=== PATIENT | female | born 1980 | race Caucasian/White ===

== ENCOUNTER 2016-05-11 05:45 | Outpatient (CLI) | payer OTHER ==
[~2016-05-11 05:45] MED LIST: ACET-1256 PO; OXYC5TAB PO; PRENTAB26 PO; SENNTAB23 PO
[2016-05-11] MEDS ORDERED: LACTATED RINGER'S 1000ML 500 ML IV ONE (06:08)
[2016-05-11] MEDS ORDERED: LACTATED RINGER'S 1000ML 1,000 ML IV SCH (06:08)
[2016-05-11 06:58] LABS: URINE APPEARANCE CLEAR (CLEAR); URINE BILIRUBIN NEG (NEG); URINE COLOR YELLOW; URINE EPITHELIAL CELL AUTO 20-30 /lpf (0-5); URINE NITRITE NEG (NEG); URINE SPECIFIC GRAVITY 1.012 (1.000-1.030); UROBILINOGEN NEG (NEG)
[2016-05-11 07:02] LABS: MANUAL MICROSCOPIC REQUIRED? NO; REVIEW REQ? NO
[2016-05-11] MEDS ORDERED: CEPH500C2 PO (08:41)
[2016-05-11] MEDS ORDERED: [UNRECOGNIZED DRUG - CODE] PV (08:58)
== END 2016-05-11 09:05 | disposition home or self-care (01) ==
LOC: C.OPB 05:45 → C.LD 05:48 → C.OPB 09:05
PROVIDERS: ATTEND Obstetrics & Gynecology
DX: O62.9 Abnormality of forces of labor, unspecified (principal); Z3A.34 34 weeks gestation of pregnancy

== ENCOUNTER 2016-06-03 10:57 | Outpatient (CLI) | payer OTHER ==
[~2016-06-03 10:57] MED LIST changes: +[UNRECOGNIZED DRUG - CODE] PV
== END 2016-06-03 11:44 | disposition home or self-care (01) ==
LOC: C.OPB 10:57 → C.LD 10:57 → C.OPB 11:44
PROVIDERS: ATTEND Obstetrics & Gynecology
DX: Z34.03 Encounter for supervision of normal first pregnancy, third trimester (principal); Z3A.37 37 weeks gestation of pregnancy

== ENCOUNTER 2016-06-16 14:10 | Outpatient (CLI) | payer OTHER ==
[~2016-06-16] VITALS: Ht 167.6 cm; Wt 91.0 kg
[2016-06-16 14:47] VITALS: Ht 167.6 cm; Wt 91.0 kg
== END 2016-06-16 15:30 | disposition home or self-care (01) ==
LOC: C.LD 14:10 → C.OPB 14:10
PROVIDERS: ATTEND Obstetrics & Gynecology
DX: Z34.03 Encounter for supervision of normal first pregnancy, third trimester (principal); Z3A.39 39 weeks gestation of pregnancy

== ENCOUNTER 2016-06-24 19:03 | Emergency (ER) | payer OTHER ==
[~2016-06-24] VITALS: Ht 167.6 cm; Wt 85.0 kg
[2016-06-24 19:06] VITALS: TEMP 36.5
[2016-06-24] MEDS ORDERED: SODIUM CHLORIDE 0.9% 1000ML 1,000 ML IV STA (19:32)
[2016-06-24] MEDS ORDERED: ONDANSETRON INJ 2 MG/ML 2 ML VIAL IV STA (19:32)
[2016-06-24] MEDS ORDERED: IBUP-1050 PO (19:47)
[2016-06-24] MEDS ORDERED: OXYC-57 PO (19:47)
[2016-06-24 20:10] VITALS: Ht 167.6 cm; Wt 85.0 kg
[2016-06-24 20:26] LABS: BASO % 0.2 %; BASO ABS # 0.02 K/uL (0-0.2); EOS % 1.3 %; HEMATOCRIT 26.3 % (37-47); IG% 0.9 %; LYMPH ABS # 2.97 K/uL (1.2-3.4); MEAN CELL VOLUME 85.1 fL (80-100); MEAN CORPUSCULAR HEMOGLOBIN 28.8 pg (25-34); MEAN CORPUSCULAR HGB CONC 33.8 g/dl (32-36); MONO % 4.5 %; NEUT % 67.1 %; PLATELET COUNT 316 K/uL (130-400); RED BLOOD COUNT 3.09 M/uL (4.2-5.4); WHITE BLOOD COUNT 11.43 K/uL (4.8-10.8)
[2016-06-24 20:35] LABS: URINE APPEARANCE CLOUDY (CLEAR); URINE BILIRUBIN NEG (NEG); URINE EPITHELIAL CELL AUTO >30 /lpf (0-5); URINE NITRITE NEG (NEG); URINE PH 6.5 (4.5-7.5); URINE SPECIFIC GRAVITY 1.011 (1.000-1.030); UROBILINOGEN NEG (NEG)
[2016-06-24 20:38] LABS: PARTIAL THROMBOPLASTIN RATIO 1.1; PROTHROMBIN TIME (PATIENT) 10.5 SECONDS (9.0-12.0)
[2016-06-24 20:46] LABS: CALCIUM 8.8 mg/dl (8.5-10.1); CREATININE 0.61 mg/dl (0.60-1.20); POTASSIUM 3.8 mmol/L (3.5-5.1)
[2016-06-24 20:48] LABS: MANUAL MICROSCOPIC REQUIRED? NO; REVIEW REQ? YES; URINE COLOR RED
[2016-06-24 20:49] LABS: ALB/GLOB RATIO 0.6 (0.9-2)
--- NOTE | 2016-06-24 21:10 | EMERGENCY ROOM VISIT NOTE ---
History Report prepared by Farhan: Candice Pabon Under the Supervision of: Dr. Ajay Albrecht D.O. First contact with patient: 19:14 Chief Complaint: ED VAG BLEEDING Stated Complaint: VAG BLEED History of Present Illness The patient is a 35 year old female who presents to the Emergency Room with complaints of worsening vaginal bleeding starting earlier today WELLNESS DIRECTOR. The patient states that she had a caesarean section 6 days WELLNESS DIRECTOR. The patient states that she has a fibroid tumor in her uterus and she was considered high risk which is why she had the caesarean section at [facility]. The patient states that she was told that if she had any bleeding with bright red blood with clotting to come and be evaluated. The patient states that after going home from [facility] 3 days ago she did have a lot of bright red bleeding but her doctor told her it was probably just from the car ride and that it was of no concern. The patient states that today she sat up to grab her breast pump and a large crane of vaginal bright red blood with a large clot occurred. She states that there was enough blood that it would have soaked through a normal menstrual pad. The patient states she has also had discharge from her surgical incision but has not noticed any unusual odor from the discharge which is what she was told to be worried about. The patient states she is also having vaginal pain. The patient states she has no other medical issues. Source of History: patient Onset: earlier today WELLNESS DIRECTOR Position: other (vaginal) Quality: other (bright red with clotting) Timing: worsening Note: Associated symptoms: vaginal pain, discharge from incision sight. Review of Systems See HPI for pertinent positives & negatives. A total of 10 systems reviewed and were otherwise negative. Past Medical & Surgical Medical Problems: (1) 39 weeks gestation of (2) Amniotic fluid leaking (3) with 37 weeks completed gestation (4) Uterine contractions (5) Uterine fibroid complicating care, baby not yet delivered in third trimester Surgical Problems: (1) S/P adenoidectomy Family History Cancer Gallbladder disease Heart disease Social History Smoking Status: Never Smoker Alcohol Use: none Marital Status: Housing Status: lives with significant other Occupation Status: employed Current/Historical Medications Scheduled Ibuprofen (Advil), 200-600 MG PO Q6 Scheduled PRN Oxycodone/Acetaminophen 5MG/325MG (Percocet 5MG/325MG), 1 TABLET PO Q6H PRN for Pain Allergies Coded Allergies: No Known Allergies (Unverified , 06/24/16) Physical Exam Vital Signs Date Time Temp Pulse Resp B/P Pulse Ox O2 Delivery O2 Flow Rate FiO2 06/24/16 22:19 60 107/62 97 06/24/16 22:10 60 20 107/62 97 Room Air 06/24/16 19:36 Room Air 06/24/16 19:29 68 06/24/16 19:06 36.5 64 17 109/74 97 Room Air Physical Exam GENERAL: Patient is awake, alert, and in no acute distress. Patient is resting comfortably and showing no signs of anxiety EYES: The conjunctivae are clear. The pupils are round and reactive. EARS, NOSE, MOUTH AND THROAT: The nose is without any evidence of any deformity. Mucous membranes are moist tongue is midline NECK: The neck is nontender and supple. RESPIRATORY: Normal respiratory effort is noted there is no evidence of wheezing rhonchi or rales CARDIOVASCULAR: Regular rate and rhythm noted there no murmurs rubs or gallops normal S1 normal S2 GASTROINTESTINAL: The abdomen mildly distended and diffusely tender. Vertical midline lower abdomen incision noted. Mild erythema noted, no dehiscence. Small amount of clear drainage noted in the superior aspect of the healing surgical sight. MUSCULOSKELETAL/EXTREMITIES: There is no evidence of gross deformity full range of motion is noted in the hips and shoulders SKIN: There is no obvious evidence of any rash. There are no petechiae, pallor or cyanosis noted. Bilateral pedal edema. NEUROLOGIC: Patient is awake alert and oriented x3 strength is symmetric patellar reflexes are 2+ bilaterally Medical Decision & Procedures ER Provider Diagnostic Interpretation: US results as stated below per my review and radiologist interpretation. EXAMINATION: PELVIC ULTRASOUND CLINICAL HISTORY: bleeding PAIN COMPARISON STUDY: 02/11/2016 FINDINGS: The uterus measured 13.4 cm. 13.5 cm uterine fibroid similar to perhaps slightly diminished compared to the prior study. Complex internal architecture. The endometrial stripe measured not well seen. The right ovary measured not well seen. The left ovary measured not well seen. There is no ultrasonographic evidence of ovarian torsion. It should be noted that ovarian torsion can be present with normal Doppler ultrasonographic findings. There was no evidence of pathologic free pelvic fluid. IMPRESSION: 1. Large uterine fibroid showing evidence for internal heterogeneity suggesting a prior substance infarction. 2. Slight decrease in fibroid size compared to the prior exam. 3. Poor visibility of the ovaries primarily due to overlying bowel content as well as the presence of the large fibroid uterus Electronically signed by: Tomas Nath M.D. 06/24/2016 9:10 PM Dictated Date/Time: 06/24/2016 9:07 PM Laboratory Results 06/24/16 20:10 Red Blood Count 3.09, Mean Corpuscular Volume 85.1, Mean Corpuscular Hemoglobin 28.8, Mean Corpuscular Hemoglobin Concent 33.8, Mean Platelet Volume 9.0, Neutrophils (%) (Auto) 67.1, Lymphocytes (%) (Auto) 26.0, Monocytes (%) (Auto) 4.5, Eosinophils (%) (Auto) 1.3, Basophils (%) (Auto) 0.2, Neutrophils # (Auto) 7.67, Lymphocytes # (Auto) 2.97, Monocytes # (Auto) 0.52, Eosinophils # (Auto) 0.15, Basophils # (Auto) 0.02 06/24/16 20:10 Test 06/24/16 20:00 06/24/16 20:10 Urine Color RED Urine Appearance CLOUDY (CLEAR) Urine pH 6.5 (4.5-7.5) Urine Specific [place] 1.011 (1.000-1.030) Urine Protein 1+ (NEG) Urine Glucose (UA) NEG (NEG) Urine Ketones NEG (NEG) Urine Occult Blood 3+ (NEG) Urine Nitrite NEG (NEG) Urine Bilirubin NEG (NEG) Urine Urobilinogen NEG (NEG) Urine Leukocyte Esterase LARGE (NEG) Urine WBC (Auto) >30 /hpf (0-5) Urine RBC (Auto) >30 /hpf (0-4) Urine Hyaline Casts (Auto) 0 /lpf (0-5) Urine Epithelial Cells (Auto) >30 /lpf (0-5) Urine Bacteria (Auto) 2+ (NEG) White Blood Count 11.43 K/uL (4.8-10.8) Red Blood Count 3.09 M/uL (4.2-5.4) Hemoglobin 8.9 g/dL (12.0-16.0) Hematocrit 26.3 % (37-47) Mean Corpuscular Volume 85.1 fL (80-100) Mean Corpuscular Hemoglobin 28.8 pg (25-34) Mean Corpuscular Hemoglobin Concent 33.8 g/dl (32-36) Platelet Count 316 K/uL (130-400) Mean Platelet Volume 9.0 fL (7.4-10.4) Neutrophils (%) (Auto) 67.1 % Lymphocytes (%) (Auto) 26.0 % Monocytes (%) (Auto) 4.5 % Eosinophils (%) (Auto) 1.3 % Basophils (%) (Auto) 0.2 % Neutrophils # (Auto) 7.67 K/uL (1.4-6.5) Lymphocytes # (Auto) 2.97 K/uL (1.2-3.4) Monocytes # (Auto) 0.52 K/uL (0.11-0.59) Eosinophils # (Auto) 0.15 K/uL (0-0.5) Basophils # (Auto) 0.02 K/uL (0-0.2) RDW Standard Deviation 42.9 fL (36.4-46.3) RDW Coefficient of Variation 13.9 % (11.5-14.5) Immature Granulocyte % (Auto) 0.9 % Immature Granulocyte # (Auto) 0.10 K/uL (0.00-0.02) Polychromasia 1+ Prothrombin Time 10.5 SECONDS (9.0-12.0) Prothromb Time International Ratio 1.0 (0.9-1.1) Activated Partial Thromboplast Time 28.4 SECONDS (21.0-31.0) Partial Thromboplastin Ratio 1.1 Anion Gap 11.0 mmol/L (3-11) Est Creatinine Clear Calc Drug Dose 141.3 ml/min Estimated GFR () 136.1 Estimated GFR (Non- 117.5 BUN/Creatinine Ratio 22.0 (10-20) Calcium Level 8.8 mg/dl (8.5-10.1) Total Bilirubin 0.2 mg/dl (0.2-1) Aspartate Amino Transf (AST/SGOT) 10 U/L (15-37) Alanine Aminotransferase (ALT/SGPT) 12 U/L (12-78) Alkaline Phosphatase 84 U/L (45-117) Total Protein 6.3 gm/dl (6.4-8.2) Albumin 2.3 gm/dl (3.4-5.0) Globulin 4.0 gm/dl (2.5-4.0) Albumin/Globulin Ratio 0.6 (0.9-2) Human Chorionic Gonadotropin, Quant 66 mIU/mL Laboratory results per my review. Medications Administered Medications (Trade) Dose Ordered Sig/Minesh Route Start Time Stop Time Status Last Admin Dose Admin Ondansetron HCl 4 mg 4 mg NOW STAT IV 06/24/16 19:32 06/24/16 19:34 DC 06/24/16 20:11 4 MG Sodium Chloride (Nss 1000ml) 1,000 ml @ 999 mls/hr Q1H1M STAT IV 06/24/16 19:32 06/24/16 20:32 DC 06/24/16 20:11 999 MLS/HR ED Course 1924: The patient was evaluated in room C8. A complete history and physical examination were performed. 1931: Ordered NSS 1,000 ml @ 999 mls/hr IV, Zofran Inj 4 mg IV. 2136: I discussed the case with Dr. Manley Obstetrics/Gynecology. She agreed to come evaluate the patient. 2203: Dr. Manley discussed her evaluation with the patient and me and states the patient is stable to go home. 2206: Upon reevaluation, the patient is resting comfortably. I discussed the results and treatment plan with her. She verbalized agreement of the treatment plan. The patient was discharged home. Medical Decision Prior records/ancillary studies reviewed. Triage Nursing notes reviewed. Additional history obtained from the family. The patient's history was concerning for vaginal bleeding and abdominal pain. Differential diagnosis: Etiologies such as ectopic , dysfunction uterine bleeding, bleeding dyscrasia, trauma, infection,retained product of conception, post operative infection, as well as others were entertained. The patient is a 35-year-old female who is from a . The patient had a because of a very large uterine fibroid. She presents to the emergency department today because of bleeding. The patient's hemoglobin was found to be low. The patient was treated with IV fluids and IV antiemetics in the emergency department. I discussed the patient's laboratory and radiographic studies with her. I also discussed his case with the on-call don Shahid ESOL TEACHER ASSISTANT physician. She was evaluated in the emergency department by the ESOL TEACHER ASSISTANT physician. The patient was encouraged to continue all medications as prescribed and rest. She was also encouraged to avoid any strenuous activity or heavy lifting. She was also encouraged to follow-up with your ESOL TEACHER ASSISTANT physician within the next day or 2. She was also encouraged to return to emergency apartment immediately if symptoms change worsen or if the need arises. Consults Time Called: 2134 Consulting Physician: Dr. Manley Obstetrics/Gynecology Returned Call: 2136 I discussed the case with Dr. Manley Obstetrics/Gynecology. She agreed to come evaluate the patient. Impression Primary Impression: Vaginal bleeding Additional Impressions: Status post Uterine fibroid Scribe Attestation The scribe's documentation has been prepared under my direction and personally reviewed by me in its entirety. I confirm that the note above accurately reflects all work, treatment, procedures, and medical decision making performed by me. Departure Information Dispostion Home / Self-Care Referrals Lynn Vladerrama MD (PCP) Forms HOME CARE DOCUMENTATION FORM, IMPORTANT VISIT INFORMATION, WORK / SCHOOL INSTRUCTIONS Patient Instructions My [facility] Additional Instructions Rest and avoid any strenuous activity. Continue all medications as prescribed. Follow-up with your ESOL TEACHER ASSISTANT physician as scheduled. Problem Qualifiers Additional Impressions: Uterine fibroid Uterine leiomyoma location: unspecified location Qualified Codes: D25.9 - Leiomyoma of uterus, unspecified
[2016-06-24 21:15] LABS: COMPLETE YES; POLYCHROMASIA 1+
[2016-06-24 22:19] VITALS: BP 107/62; PULSE 60; O2SAT 97
--- NOTE | 2016-06-25 07:18 | Medical Consult ---
Consultation Date of Consultation: Jun 25, 2016. Attending Physician: Sindhu Reason for Consultation: Vaginal bleeding after section 6 days ago History of Present Illness 35yo delivered of a term by classical / midline lapar[place] [facility] [place]. Delivery at [facility] and by classical due to 15cm fundal fibroid. The patient presented to ER tonight because she had some bright red vaginal bleeding at home, with passage of a clot that she describes as round, flat, and about 2" across, "smaller than a silver dollar pancake." After arriving in ER she notes passage of another somewhat larger clot that was similar to a tennis ball. Between the passage of these clots she has had vaginal bleeding that ranges from none at all, to a light period flow. She denies soaking any pads in less than 1 hour aside from these clots. She denies lightheadedness, but states she is worried, because she was told before leaving [facility] that she should consider any "bright red" bleeding an emergency. Until today her bleeding had been dark brown, so the change to bright red was what specifically led her to present for care. She is accompanied by her mother and who both ask whether she will need a hysterectomy today. She shows me a photo of her baby who she says is doing "great," and is at home with the patient's sister at this time. Past Medical/Surgical History Medical Problems: (1) Uterine fibroid Status: Acute (2) Vaginal bleeding Status: Acute Social History Problems: (1) Status post Status: Acute Family History Cancer Gallbladder disease Heart disease Social History Smoking Status: Never Smoker Marital Status: Housing Status: lives with significant other Occupation Status: employed Allergies Coded Allergies: No Known Allergies (Unverified , 06/24/16) Home Medications vitamin, ibuprofen, percocet prn Review of Systems Constitutional: No chills, No fever Respiratory: No shortness of breath Cardiovascular: No chest pain Abdomen: No nausea, No vomiting Genitourinary - Female: + vaginal bleeding (see HPI) Neurologic: No vertigo Psychiatric: No depression symptoms Endocrine: No fatigue Physical Exam Date Time Temp Pulse Resp B/P Pulse Ox O2 Delivery O2 Flow Rate FiO2 06/24/16 22:19 60 107/62 97 06/24/16 22:10 60 20 107/62 97 Room Air 06/24/16 19:36 Room Air 06/24/16 19:29 68 06/24/16 19:06 36.5 64 17 109/74 97 Room Air Alert, in NAD. Seated semi-sanchez's and talkative with family and caregivers. Eager to show pictures of infant. General Appearance: no apparent distress ENT: hearing grossly normal Neck: supple Respiratory/Chest: no respiratory distress, no accessory muscle use Cardiovascular: + pertinent finding (trace edema bilateral ankles) Abdomen/GI: soft, + mass (fundus / fibroid palpable just above umbilicus, nontender. Midline vertical incision healing well without erythema or drainage. ) Genitourinary - Female: external genitalia normal, + pertinent finding (Normal amount lochia rubra evident. No blood pooled in vaginal vault.) Extremities/Musculoskelatal: no calf tenderness Neurologic/Psych: alert, normal mood/affect, oriented x 3 Skin: normal color, warm/dry Laboratory Results Last 24 Hours Test 06/24/16 20:00 06/24/16 20:10 Urine Color RED Urine Appearance CLOUDY Urine pH 6.5 Urine Specific [place] 1.011 Urine Protein 1+ Urine Glucose (UA) NEG Urine Ketones NEG Urine Occult Blood 3+ Urine Nitrite NEG Urine Bilirubin NEG Urine Urobilinogen NEG Urine Leukocyte Esterase LARGE Urine WBC (Auto) >30 /hpf Urine RBC (Auto) >30 /hpf Urine Hyaline Casts (Auto) 0 /lpf Urine Epithelial Cells (Auto) >30 /lpf Urine Bacteria (Auto) 2+ White Blood Count 11.43 K/uL Red Blood Count 3.09 M/uL Hemoglobin 8.9 g/dL Hematocrit 26.3 % Mean Corpuscular Volume 85.1 fL Mean Corpuscular Hemoglobin 28.8 pg Mean Corpuscular Hemoglobin Concent 33.8 g/dl Platelet Count 316 K/uL Mean Platelet Volume 9.0 fL Neutrophils (%) (Auto) 67.1 % Lymphocytes (%) (Auto) 26.0 % Monocytes (%) (Auto) 4.5 % Eosinophils (%) (Auto) 1.3 % Basophils (%) (Auto) 0.2 % Neutrophils # (Auto) 7.67 K/uL Lymphocytes # (Auto) 2.97 K/uL Monocytes # (Auto) 0.52 K/uL Eosinophils # (Auto) 0.15 K/uL Basophils # (Auto) 0.02 K/uL RDW Standard Deviation 42.9 fL RDW Coefficient of Variation 13.9 % Immature Granulocyte % (Auto) 0.9 % Immature Granulocyte # (Auto) 0.10 K/uL Polychromasia 1+ Prothrombin Time 10.5 SECONDS Prothromb Time International Ratio 1.0 Activated Partial Thromboplast Time 28.4 SECONDS Partial Thromboplastin Ratio 1.1 Sodium Level 138 mmol/L Potassium Level 3.8 mmol/L Chloride Level 106 mmol/L Carbon Dioxide Level 21 mmol/L Anion Gap 11.0 mmol/L Blood Urea Nitrogen 13 mg/dl Creatinine 0.61 mg/dl Est Creatinine Clear Calc Drug Dose 141.3 ml/min Estimated GFR () 136.1 Estimated GFR (Non- 117.5 BUN/Creatinine Ratio 22.0 Random Glucose 81 mg/dl Calcium Level 8.8 mg/dl Total Bilirubin 0.2 mg/dl Aspartate Amino Transf (AST/SGOT) 10 U/L Alanine Aminotransferase (ALT/SGPT) 12 U/L Alkaline Phosphatase 84 U/L Total Protein 6.3 gm/dl Albumin 2.3 gm/dl Globulin 4.0 gm/dl Albumin/Globulin Ratio 0.6 Human Chorionic Gonadotropin, Quant 66 mIU/mL Assessment & Plan 35yo PPD#6 vertical midline / classical for large uterine fibroid and SIUP at term, done at [facility], now presenting with lochia rubra and anemia. Hgb noted. Given patient's description of generally light flow followed by two clots that would be within normal limits , and her energetic appearance suggesting that she is not newly / acutely anemic, I suspect that her anemia stems mostly from the delivery. Patient was encouraged to restart her PNV and iron, which she did not continue after discharge from hospital. Otherwise patient appears to be doing well, with good healing of incision, reporting successful , and no signs of depression. Please note that although this dictation was delayed until morning, patient was seen, evaluated, and my findings reported to Dr. Albrecht immediately after I was called regarding this patient yesterday evening.
--- NOTE | 2016-06-25 08:44 | DIAGNOSTIC IMAGING REPORT ---
EXAMINATION: PELVIC ULTRASOUND CLINICAL HISTORY: bleeding PAIN COMPARISON STUDY: 02/11/2016 FINDINGS: The uterus measured 13.4 cm. 13.5 cm uterine fibroid similar to perhaps slightly diminished compared to the prior study. Complex internal architecture. The endometrial stripe measured not well seen. The right ovary measured not well seen. The left ovary measured not well seen. There is no ultrasonographic evidence of ovarian torsion. It should be noted that ovarian torsion can be present with normal Doppler ultrasonographic findings. There was no evidence of pathologic free pelvic fluid. IMPRESSION: 1. Large uterine fibroid showing evidence for internal heterogeneity suggesting a prior substance infarction. 2. Slight decrease in fibroid size compared to the prior exam. 3. Poor visibility of the ovaries primarily due to overlying bowel content as well as the presence of the large fibroid uterus Electronically signed by: Tomas Nath M.D. 06/24/2016 9:10 PM Dictated Date/Time: 06/24/2016 9:07 PM
== END 2016-06-24 22:20 | disposition home or self-care (01) ==
LOC: EDBD 19:03 → C.EDC 19:04
DX: N93.9 Abnormal uterine and vaginal bleeding, unspecified (principal); Z98.890 Other specified postprocedural states; D25.9 Leiomyoma of uterus, unspecified

== ENCOUNTER → 2016-08-29 | Outpatient (CLI) | payer OTHER ==
[~2016-08-29] MED LIST changes: -ACET-1256 PO; +IBUP-1050 PO; +OXYC-57 PO; -OXYC5TAB PO; -PRENTAB26 PO; -SENNTAB23 PO; -[UNRECOGNIZED DRUG - CODE] PV
[2016-08-29 13:14] LABS: ALT/SGPT 35 U/L (12-78); BLOOD UREA NITROGEN 19 mg/dl (7-18); BUN/CREATININE RATIO 21.5 (10-20); CARBON DIOXIDE 25 mmol/L (21-32); CHLORIDE 106 mmol/L (98-107); CREATININE 0.89 mg/dl (0.60-1.20); GLUCOSE 90 mg/dl (70-99); POTASSIUM 4.1 mmol/L (3.5-5.1); SODIUM 139 mmol/L (136-145)
[2016-08-29 13:17] LABS: ALB/GLOB RATIO 1.1 (0.9-2); ALKALINE PHOSPHATASE 64 U/L (45-117); AST/SGOT 18 U/L (15-37); CALCIUM 9.9 mg/dl (8.5-10.1)
== END | disposition home or self-care (01) ==
LOC: C.LAB1850 10:57
PROVIDERS: ATTEND Obstetrics & Gynecology
DX: Z92.29 Personal history of other drug therapy (principal)

== ENCOUNTER → 2016-10-06 | Outpatient (CLI) | payer OTHER ==
[~2016-10-06] MED LIST changes: +GADAVIST IV PRN
--- NOTE | 2016-10-06 16:33 | DIAGNOSTIC IMAGING REPORT ---
PELVIS MRI WITH AND WITHOUT INTRAVENOUS CONTRAST HISTORY: Uterine fibroid. TECHNIQUE: Multiplanar multisequence MRI of the pelvis was performed both before and after the intravenous administration of contrast. COMPARISON STUDY: Pelvic ultrasound 06/24/2016. FINDINGS: There is a large predominantly T2 hyperintense, T1 intermediate intensity mass within the anterior wall of the uterus which measures 13 x 11 x 12 cm. This contains a few nodular areas of T2 hyperintense signal internally which do not enhance. This favors cystic/necrotic degeneration of an intramural fibroid. Excluding the mass, the uterus measures 7.5 x 5.8 x 2.2 cm. Normal endometrial stripe measuring up to 3 mm in thickness. Trace fluid within the cervical canal and a few tiny nabothian cysts. Otherwise, the cervix is unremarkable. Normal bilateral ovaries containing a few subcentimeter follicles/cysts. The right ovary measures 3.4 x 2.1 cm. The left ovary measures 2.5 x 1.7 cm. No significant pelvic free fluid. There appears be a tampon within the vagina. Within the fundus of the uterus there is a 9 mm hypoenhancing nodule which also likely represents an intramural fibroid. There is also a 2.1 x 2.1 x 1.8 cm enhancing subserosal fibroid within the right posterior uterine wall. Evidence for prior midline anterior abdominal wall incision. No pelvic lymphadenopathy. IMPRESSION: 1. A 13 x 11 x 12 cm mass within the anterior wall of the uterus. This is primarily T2 hyperintense and T1 intermediate intensity with peripheral enhancement. There is no abnormal internal enhancement. Therefore, this favors cystic/necrotic degeneration of the large intramural fibroid. 2. There are 2 additional smaller fibroids within the uterus as described above. 3. Normal ovaries. Electronically signed by: Yomi Monzon M.D. 10/06/2016 4:31 PM Dictated Date/Time: 10/06/2016 4:19 PM
== END | disposition home or self-care (01) ==
LOC: C.MRI 14:10
PROVIDERS: ATTEND Obstetrics & Gynecology Reproductive Endocrinology
DX: D25.9 Leiomyoma of uterus, unspecified (principal)